=== PATIENT | male | born 1950 | race Caucasian/White ===

== ENCOUNTER 2019-03-05 11:45 | Emergency (ER) | payer MEDICARE, BC ==
[2019-03-05 12:13] VITALS: BP 145/81
--- NOTE | 2019-03-05 14:01 | UC ---
Complaint Male HPI - HPI Summary HPI Summary: Patient is a 68-year-old male presenting with frequency, urgency, and burning with urination that has gradually worsened over the past week. Denies blood in the urine. Denies abdominal or pelvic pain. Denies flank pain. Denies abnormal discharge. Denies fever and chills. Denies nausea and vomiting. Patient states he has had UTIs in the past. - History of Current Complaint Chief Complaint: UCGU Stated Complaint: URINARY ISSUE Hx Obtained From: Patient Onset/Duration: Gradual Onset, Lasting Days Severity Currently: Severe Pain Intensity: 9 - Allergies/Home Medications Allergies/Adverse Reactions: Allergies Allergy/AdvReac Type Severity Reaction Status Date / Time Penicillins Allergy unk Verified 03/05/19 12:13 PMH/Surg Hx/FS Hx/Imm Hx Previously Healthy: Yes - Surgical History Surgical History: Yes Surgery Procedure, Year, and Place: dental implants,finger,mole - Family History Known Family History: Positive: Unknown, Non-Contributory - Social History Alcohol Use: Daily Substance Use Type: None Smoking Status (MU): Never Smoked Tobacco Review of Systems All Other Systems Reviewed And Are Negative: Yes Constitutional: Positive: Negative. Negative: Fever, Chills Respiratory: Positive: Negative Cardiovascular: Positive: Negative Gastrointestinal: Positive: Negative. Negative: Abdominal Pain, Vomiting, Nausea Genitourinary: Positive: Dysuria, Frequency, Urgency, Vaginal/Penile Burning. Negative: Hematuria, Vaginal/Penile Itching, Vaginal/Penile Discharge, Vaginal/ Penile Pain, Vaginal/Penile Tenderness, Ulceration/Lesion, Abnormal Bleeding Musculoskeletal: Positive: Negative Neurological: Positive: Negative Physical Exam Triage Information Reviewed: Yes Appearance: Well-Appearing, No Pain Distress, Well-Nourished Vital Signs: Initial Vital Signs Temp 98 F 03/05/19 12:09 Pulse 67 03/05/19 12:09 Resp 15 03/05/19 12:09 BP 145/81 03/05/19 12:09 Pulse Ox 100 03/05/19 12:09 Lab Results 03/05/19 Range/Units 13:18 POC Urine Color Yellow POC Urine Clarity Clear POC Urine pH 5.5 (5-9) POC Ur Specif [place] 1.010 (1.010-1.030) POC Urine Protein Negative (Negative) POC Ur Glucose (UA) Negative (Negative) POC Urine Ketones Negative (Negative) POC Urine Blood 2+ A (Negative) POC Urine Nitrite Negative (Negative) POC Urine Bilirubin Negative (Negative) POC Urine Urobilinogen 0.2 (Negative) POC U Leukocyte Esteras Trace A (Negative) Vital Signs Reviewed: Yes Eyes: Positive: Conjunctiva Clear ENT: Positive: Hearing grossly normal Neck: Positive: Supple Respiratory Exam: Normal Respiratory: Positive: Lungs clear, Normal breath sounds, No respiratory distress Cardiovascular Exam: Normal Cardiovascular: Positive: RRR Abdominal Exam: Normal Abdomen Description: Positive: Nontender, Soft. Negative: CVA Tenderness (R), CVA Tenderness (L) Neurological: Positive: Alert Psychological: Positive: Age Appropriate Behavior Complaint Male Course/Dx - Course Course Of Treatment: I treated with Bactrim for UTI. Instructed patient to take Azo and increase fluid intake. Instructed to follow up with PCP if symptoms persist or go to ED if symptoms worsen. Patient voiced understanding and agreed with treatment plan. - Differential Dx/Diagnosis Provider Diagnosis: Urinary tract infection in male Discharge ED - Sign-Out/Discharge Documenting (check all that apply): Patient Departure All imaging exams completed and their final reports reviewed: No Studies - Discharge Plan Condition: Stable Disposition: HOME Prescriptions: Sulfamethox/Trimethoprim DS* [Bactrim DS 800/160 TAB*] 1 tab PO BID #10 tab Patient Education Materials: Urinary Tract Infection in Men (ED) Referrals: Care [facility] [Outside] [facility] [Outside] Additional Instructions: As discussed, take Bactrim for the treatment of your UTI. You may also take Azo over the counter for symptomatic relief. This may turn your urine orange, which is ok and will resolve after you stop taking the Azo. Make sure you increase your fluid intake. Follow up with your PCP if your symptoms do not resolve within 5 days. Go to the emergency room if your symptoms worsen including fever, chills, lower back pain, nausea and vomiting, or abdominal pain. - Billing Disposition and Condition Condition: STABLE Disposition: Home - Attestation Statements Provider Attestation: I was available for consult. This patient was seen by the [facility]. The patient was not presented to, seen by, or examined by me. -Siria
--- NOTE | 2019-03-07 10:14 | UC ---
- Progress Note Progress Note: Urine culture final with no growth. If pt is feeling better with Bactrim - may finish anbx If no change in symptoms - f/u with PCP or Urology for recheck Course/Dx - Diagnoses Provider Diagnoses: Urinary tract infection in male Discharge ED - Sign-Out/Discharge Documenting (check all that apply): Post-Discharge Follow Up All imaging exams completed and their final reports reviewed: No Studies - Discharge Plan Condition: Stable Disposition: HOME Prescriptions: Sulfamethox/Trimethoprim DS* [Bactrim DS 800/160 TAB*] 1 tab PO BID #10 tab Patient Education Materials: Urinary Tract Infection in Men (ED) Referrals: Care [facility] [Outside] [facility] [Outside] Additional Instructions: As discussed, take Bactrim for the treatment of your UTI. You may also take Azo over the counter for symptomatic relief. This may turn your urine orange, which is ok and will resolve after you stop taking the Azo. Make sure you increase your fluid intake. Follow up with your PCP if your symptoms do not resolve within 5 days. Go to the emergency room if your symptoms worsen including fever, chills, lower back pain, nausea and vomiting, or abdominal pain. - Billing Disposition and Condition Condition: STABLE Disposition: Home
== END 2019-03-05 14:00 | disposition home or self-care (01) ==
LOC: UCEAST 11:45
DX: N39.0 Urinary tract infection, site not specified (principal); Z88.0 Allergy status to penicillin
CPT/HCPCS: 81003; 87086; 99202; G0463

== ENCOUNTER 2019-03-11 18:08 | Emergency (ER) | payer MEDICARE, BC ==
[2019-03-11 18:23] VITALS: BP 133/71
--- NOTE | 2019-03-11 18:30 | UC ---
Complaint Male HPI - HPI Summary HPI Summary: Patient is year old , who present today to the urgent care for possible UTI symptoms. seen 03/05 with UTI symptoms, given bactrim and otc azo. symptoms improved with meds, but not 100%. shortly after finishing rx, symptoms returned. Last dose was 2 days ago. 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 He reports that he had similar symptoms a few years back which resolved with a course of antibiotics. Overall he reports that urgency is better but continues to notice discomfort at the tip of his penis. Reports dysuria, urgency and increased frequency. He denies any blood in urine, fevers or back pain. He also notices some irritation in his perineal area/discomfort. He is not sexually active and his last sexual encounter was long time ago. Denies any chance of STD He has been waking up 1-2 times at night for past 6 months. Denies any fever, chills, cough chest pain or shortness of breath . Denies any abdominal pain , nausea or vomiting , diarrhea or constipation. Denies any penile discharge - History of Current Complaint Chief Complaint: UCGU Stated Complaint: POSS UTI Time Seen by Provider: 03/11/19 18:18 Hx Obtained From: Patient Pain Intensity: 0 - Allergies/Home Medications Allergies/Adverse Reactions: Allergies Allergy/AdvReac Type Severity Reaction Status Date / Time Penicillins Allergy unk Verified 03/11/19 18:23 PMH/Surg Hx/FS Hx/Imm Hx - Additional Past Medical History Additional PMH: Past Medical History : Renal stone Past Surgical History: Dental implant, tonsillectomy, more removal, finger surgery Family History : non contributory Social History : Daily alcohol-glass of wine, non smoker, no drug use. Previously Healthy: Yes - Surgical History Surgical History: Yes Surgery Procedure, Year, and Place: dental implants,finger,mole removal, tonsillectomy - Family History Known Family History: Positive: Unknown, Non-Contributory - Social History Alcohol Use: Daily Alcohol Amount: 1 glass wine Substance Use Type: None Smoking Status (MU): Never Smoked Tobacco Review of Systems All Other Systems Reviewed And Are Negative: Yes Constitutional: Positive: Negative Skin: Positive: Negative Eyes: Positive: Negative ENT: Positive: Negative Respiratory: Positive: Negative Cardiovascular: Positive: Negative Gastrointestinal: Positive: Negative Genitourinary: Positive: Dysuria, Frequency, Urgency. Negative: Hematuria Motor: Positive: Negative Neurovascular: Positive: Negative Musculoskeletal: Positive: Negative Neurological: Positive: Negative Psychological: Positive: Negative Is Patient Immunocompromised?: No Physical Exam - Summary Physical Exam Summary: Physical Exam: Const: Appears well. No signs of apparent distress present. Alert and oriented x 3. Musculo: Walks with a normal gait. Head/Face: Atraumatic, normocephalic on inspection. Eyes: EOMI and PERRLA in both eyes. Conjunctivae clear. No discharge noted ENT: Hearing normal, Respiratory: Respirations are unlabored. Lungs clear to auscultation bilaterally, no wheezing , rhonchi or rales noted . CVS: Regular rate and Rhythm, S1S2 normal , no murmurs identified. Extremities: Peripheral circulation is grossly normal. Pulses 2+ Abdomen : Soft non tender , nondistended , Bowel sounds present . No CVA tenderness Skin: No lesions or rash located on the upper extremities or on the lower extremities. exam: Normal appearing penis and scrotum. No tenderness to palpation at the tip of the penis or in the testicles. No obvious hernia noted. Per rectum: skin tags noted. tenderness to palpate the prostate , possible mild enlargement Neuro: Cranial nerves II to XII intact, motor and sensory intact. DTR Intact bilaterally. Mood is normal. Affect is normal. Triage Information Reviewed: Yes Vital Signs: Initial Vital Signs Temp 97.5 F 03/11/19 18:17 Pulse 63 03/11/19 18:17 Resp 16 03/11/19 18:17 BP 133/71 03/11/19 18:17 Pulse Ox 99 03/11/19 18:17 Vital Signs Reviewed: Yes Complaint Male Course/Dx - Course Course Of Treatment: UA:Bld 2+, Protein +, Leucs 1+ We discussed that his symptoms can be secondary to prostatitis. His recent urine culture was negative and since then he has been treated with Bactrim for 5 days. Plan to send the urine culture.. We discussed that he needs to be seen by urology and needs an ultrasound to evaluate for prostrate hyperplasia(BPH) Ultrasound is not available today and we discussed that he can be seen in the ER today for an ultrasound versus he can return here tomorrow to get the ultrasound done but he opted to pursue seeing a urologist for detailed evaluation for his symptoms. At this time we decided to restart antibiotics for a prolonged course and in the meantime follow up with urology for definitive management. - Differential Dx/Diagnosis Provider Diagnosis: UTI (urinary tract infection), Prostatitis Discharge ED - Sign-Out/Discharge Documenting (check all that apply): Patient Departure All imaging exams completed and their final reports reviewed: No Studies - Discharge Plan Condition: Stable Disposition: HOME Prescriptions: Sulfamethox/Trimethoprim DS* [Bactrim DS 800/160 TAB*] 1 tab PO BID 10 Days #20 tab Patient Education Materials: Prostatitis (ED) Referrals: No Primary Care Phys,NOPCP [Primary Care Provider] - Rizwan Small MD [Medical Doctor] - As Soon As Possible Additional Instructions: Antibiotics have been prescribed to the pharmacy . Somebody will call you with the lab results and if anything abnormal or treatment needs to be changed Follow up with Urology as soon as possible. You can return here for ultrasound of prostrate for go to the ER tonight for further evaluation Patients blood pressure slightly high in Urgent care today and prehypertensive range , plan follow up with PCP for better control within 1 month Return to Urgent care / ER if symptoms get worse. - Billing Disposition and Condition Condition: STABLE Disposition: Home
[2019-03-11] MEDS ORDERED: Sulfamethox/Trimethoprim DS 800/160* TAB PO ONE (19:15)
== END 2019-03-11 19:25 | disposition home or self-care (01) ==
LOC: UCEAST 18:08
DX: N41.9 Inflammatory disease of prostate, unspecified (principal); N39.0 Urinary tract infection, site not specified; K64.4 Residual hemorrhoidal skin tags; Z88.0 Allergy status to penicillin
CPT/HCPCS: 81003; 87086; 99212; A9270-GY; G0463

== ENCOUNTER 2019-03-13 20:06 | Emergency (ER) | payer MEDICARE, BC ==
--- NOTE | 2019-03-13 20:11 | UC ---
Skin Complaint HPI - HPI Summary HPI Summary: 68 yo male presents with possible allergic reaction. He was seen here 03/05 and 03/11 for UTI symptoms and prescribed Bactrim both times. Urine cultures came back negative both times. When he took the course of Bactrim on 03/05 he had no side effects. He was placed on another course of Bactrim on 03/11 and today he has noticed itchy hives on his abdomen and back and developed a hoarse voice around noon today. Denies fever, wheezing, cough, SOB, chest pain, abdominal pain, n/v, headache, or dizziness. - History of Current Complaint Time Seen by Provider: 03/13/19 20:11 Stated Complaint: MED REACTION Hx Obtained From: Patient Onset/Duration: Sudden Onset - Allergy/Home Medications Allergies/Adverse Reactions: Allergies Allergy/AdvReac Type Severity Reaction Status Date / Time Penicillins Allergy unk Verified 03/11/19 18:23 sulfamethoxazole Allergy Rash Verified 03/13/19 20:33 [From Bactrim] trimethoprim [From Bactrim] Allergy Rash Verified 03/13/19 20:33 PMH/Surg Hx/FS Hx/Imm Hx - Additional Past Medical History Additional PMH: None - Surgical History Surgical History: Yes Surgery Procedure, Year, and Place: dental implants,finger,mole removal, tonsillectomy - Family History Known Family History: Positive: Unknown - Social History Occupation: Employed Full-time Lives: With Family Alcohol Use: Daily Alcohol Amount: 1 glass wine Substance Use Type: None Smoking Status (MU): Never Smoked Tobacco Review of Systems All Other Systems Reviewed And Are Negative: No Constitutional: Positive: Negative Skin: Positive: Rash Respiratory: Positive: Negative Cardiovascular: Positive: Negative Gastrointestinal: Positive: Negative Genitourinary: Positive: Negative Neurological: Positive: Negative Psychological: Positive: Negative Physical Exam - Summary Physical Exam Summary: GENERAL: NAD. WDWN. No distress. SKIN: Scattered hives on abdomen, back, and buttocks. No edema or hives on face , neck, or legs. HEENT: No periorbital, lip, or other facial edema. Airway patent without oropharyngeal edema. NECK: Supple. Nontender. No lymphadenopathy. CHEST: CTAB. No wheezing. No accessory muscle use. Breathing comfortably and in no distress. CV: RRR. Pulses intact. Cap refill <2seconds NEURO: Alert. PSYCH: Age appropriate behavior. Triage Information Reviewed: Yes Vital Signs: Vital Signs: Temp Pulse Resp BP Pulse Ox 99.6 F 90 18 117/72 95 03/13/19 20:31 03/13/19 20:31 03/13/19 20:31 03/13/19 20:31 03/13/19 20:31 Vital Signs Reviewed: Yes Course/Dx - Course Course Of Treatment: Suspect reaction to Bactrim. In the clinic he was given solu-medrol IM, benadryl po, and pepcid po. He was observed for 30minutes and had improvement of his urticaria - fading and less erythematous. No new lesions. Will rx for pepcid, benadryl, and prednisone - Diagnoses Provider Diagnosis: Medication reaction Discharge ED - Sign-Out/Discharge Documenting (check all that apply): Patient Departure All imaging exams completed and their final reports reviewed: No Studies - Discharge Plan Condition: Stable Disposition: HOME Prescriptions: diphenhydrAMINE HCl [Benadryl Allergy] 25 mg PO BID #20 tablet Famotidine TAB* [Pepcid 20 MG TAB*] 20 mg PO BID #20 tab predniSONE TAB* [Deltasone 20 MG TAB*] 20 mg PO DAILY #14 tab Patient Education Materials: Antibiotic Medication Allergy (ED) Referrals: No Primary Care Phys,NOPCP [Primary Care Provider] - Additional Instructions: If you develop a fever, shortness of breath, chest pain, new or worsening symptoms - please call your PCP or go to the ED immediately. - Take prednisone exactly as prescribed until gone - starting tomorrow - Okay to take Benadryl 25mg every 6 hours as needed for itching and hives. This medication may cause drowsiness - do NOT drive, operate machinery or drink alcohol while taking Benadryl -Avoid getting over-heated (hot showers, hot tubs, exercise) for at least 48 hours - Try to avoid aspirin, NSAIDs (Motrin, Aleve, Naprosyn) for 2-3 days - Okay to apply cool compresses to the area of injury - Fill your prescription for the epi pen - keep with you and use if you develop an reaction that causes difficulty breathing, facial or mouth swallowing, or any other concerns - call 911 if you use your epi pen -Contact your doctor or return here with questions or concerns IT IS NOW LIKELY THAT YOU HAVE A HYPERSENSITIVITY AND/OR ARE ALLERGIC TO BACTRIM OR MEDICATIONS CONTAINING SULFA - Billing Disposition and Condition Condition: STABLE Disposition: Home
[2019-03-13] MEDS ORDERED: methylPREDNISolone 125 MG* 2 ML VIAL IM ONE (20:21)
[2019-03-13] MEDS ORDERED: Famotidine TAB* 20 MG PO ONE (20:21)
[2019-03-13] MEDS ORDERED: diPHENhydraMINE PO* 25 MG PO ONE (20:21)
[2019-03-13 20:32] VITALS: BP 117/72
== END 2019-03-13 21:20 | disposition home or self-care (01) ==
LOC: UCEAST 20:06
DX: L50.9 Urticaria, unspecified (principal); T50.905A Adverse effect of unspecified drugs, medicaments and biological substances, initial encounter; Y92.9 Unspecified place or not applicable; Z88.0 Allergy status to penicillin; Z88.2 Allergy status to sulfonamides
CPT/HCPCS: 96372; 99212; A9270-GY; G0463; J2930